=== PATIENT | male | born 1985 | race Caucasian/White ===

== ENCOUNTER 2016-06-13 02:00 | Emergency (ER) | payer MEDICARE, MEDICAID ==
[~2016-06-13] VITALS: Ht 172.7 cm; Wt 63.6 kg
[~2016-06-13 02:00] MED LIST: ATIVAN0.5 MG PO; BACTRIM DS1 TAB PO; DEPAKOTE250 MG PO; DOXYCYCL HYC100 MG PO; FLEXERIL PO; GEODON20 M1; LORTAB 5-325 MG1 TAB PO; MOTRIN800 MG PO; NAPROSYN500 MG PO; PHENERGAN25 MG/TAB PO; RISPERDAL2 MG PO; RISPERDAL3 MG OR; ROBITUSSIN AC10 ML PO; SEROQUEL100 MG PO; TORADOL PO; ULTRAM50 M1 OR; ULTRAM50 M1 PO; ULTRAM50 MG PO
[2016-06-13] MEDS ORDERED: SEROQUEL XR150 MG PO (02:16)
[2016-06-13] MEDS ORDERED: LORAZEPAM0.5 MG PO (02:17)
[2016-06-13] MEDS ORDERED: ULTRAM50 M1 PO (06:23)
[2016-06-13 07:00] VITALS: BP 128/72
== END 2016-06-13 07:05 | disposition home or self-care (01) ==
LOC: ED 02:00
DX: R51 Headache (principal); F20.9 Schizophrenia, unspecified

== ENCOUNTER 2017-01-14 20:43 | Emergency (ER) | payer MEDICARE, MEDICAID ==
[~2017-01-14] VITALS: Ht 172.7 cm; Wt 65.8 kg
[~2017-01-14 20:43] MED LIST changes: +LORAZEPAM0.5 MG PO; +SEROQUEL XR150 MG PO
[2017-01-14] MEDS ORDERED: CLONAZEPAM XX (21:01)
[2017-01-14 22:36] LABS: URINE BILIRUBIN - DIPSTICK NEGATIVE (NEGATIVE); URINE BLOOD DIPSTICK NEGATIVE (NEGATIVE); URINE CLARITY CLEAR; URINE COLOR YELLOW; URINE GLUCOSE - DIPSTICK NEGATIVE (NEGATIVE); URINE KETONE NEGATIVE (NEGATIVE); URINE LEUK ESTERASE NEGATIVE (NEGATIVE); URINE NITRITE - DIPSTICK NEGATIVE (Negative); URINE PROTEIN - DIPSTICK NEGATIVE (NEG-TRACE); URINE SPECIFIC GRAVITY 1.025; URINE UROBILINOGEN - DIPSTICK 0.2 E.U./dL (0.2)
[2017-01-14] MEDS ORDERED: NAPROSYN500 MG PO (22:49)
[2017-01-14 23:19] VITALS: BP 118/64
== END 2017-01-14 23:20 | disposition home or self-care (01) ==
LOC: ED 20:43
PROVIDERS: Emergency Medicine
DX: F41.9 Anxiety disorder, unspecified (principal); M79.1 Myalgia; F20.9 Schizophrenia, unspecified; F31.9 Bipolar disorder, unspecified; F17.210 Nicotine dependence, cigarettes, uncomplicated

== ENCOUNTER 2017-01-25 05:23 | Emergency (ER) | payer MEDICARE, MEDICAID ==
[~2017-01-25] VITALS: Ht 172.7 cm; Wt 64.8 kg
[~2017-01-25 05:23] MED LIST changes: +CLONAZEPAM XX
[2017-01-25 07:09] VITALS: BP 116/81
== END 2017-01-25 07:17 | disposition home or self-care (01) ==
LOC: ED 05:23
DX: S51.832A Puncture wound without foreign body of left forearm, initial encounter (principal); F25.9 Schizoaffective disorder, unspecified; F31.9 Bipolar disorder, unspecified; F17.210 Nicotine dependence, cigarettes, uncomplicated; W22.8XXA Striking against or struck by other objects, initial encounter; Y93.89 Activity, other specified; Y92.009 Unspecified place in unspecified non-institutional (private) residence as the place of occurrence of the external cause

== ENCOUNTER 2017-11-28 11:08 | Emergency (ER) | payer MEDICARE, MEDICAID ==
[~2017-11-28] VITALS: Ht 172.7 cm; Wt 81.8 kg
[2017-11-28] MEDS ORDERED: AUGMENTIN875TAB PO (11:47)
[2017-11-28] MEDS ORDERED: ZPAK PO (11:47)
[2017-11-28 12:07] LABS: INFLUENZA A NONE DETECTED (NONE DETECT); INFLUENZA B NONE DETECTED (NONE DETECT)
[2017-11-28 12:17] VITALS: BP 112/88
== END 2017-11-28 12:17 | disposition home or self-care (01) ==
LOC: ED 11:08
PROVIDERS: Family Medicine
DX: J20.9 Acute bronchitis, unspecified (principal); F17.210 Nicotine dependence, cigarettes, uncomplicated

== ENCOUNTER 2018-04-27 22:26 | Emergency (ER) | payer MEDICARE ==
[~2018-04-27] VITALS: Ht 172.7 cm; Wt 68.6 kg
[~2018-04-27 22:26] MED LIST changes: +AUGMENTIN875TAB PO; +ZPAK PO
[2018-04-27] MEDS ORDERED: WELLBUTRIN SR150 MG PO (22:57)
[2018-04-28] MEDS ORDERED: CEPHALEXIN500 M1 PO (00:15)
[2018-04-28 00:25] VITALS: BP 111/75
== END 2018-04-28 00:25 | disposition home or self-care (01) ==
LOC: ED 22:26
DX: J06.9 Acute upper respiratory infection, unspecified (principal); I10 Essential (primary) hypertension; F31.9 Bipolar disorder, unspecified; F20.9 Schizophrenia, unspecified; F17.210 Nicotine dependence, cigarettes, uncomplicated

== ENCOUNTER 2019-08-26 01:38 | Emergency (ER) | payer MEDICARE, MEDICAID ==
[~2019-08-26 01:38] MED LIST changes: +CEPHALEXIN500 M1 PO; +WELLBUTRIN SR150 MG PO
[2019-08-26] MEDS ORDERED: QUETIAPINE FUM150 MG (01:59)
[2019-08-26 02:14] LABS: HEMATOCRIT 42.9 % (39.0-50.0); HEMOGLOBIN 14.6 g/dl (14.0-18.0); IMMATURE GRANULOCYTES 0.1 % (0.0-5.0); MEAN CELL VOLUME 88.5 fL CALC (80.0-100.0); MEAN CORPUSCULAR HGB 30.1 pG CALC (26.0-32.0); NEUT# 3.74 thou/uL (1.82-7.42); RED BLOOD COUNT 4.85 mill/uL (4.70-6.10); RED CELL DISTRI WIDTH 12.2 % (11.5-15.5)
[2019-08-26 02:36] LABS: ALBUMIN 4.8 g/dL (3.2-5.0); ALKALINE PHOSPHATASE 55 u/l (38-126); ANION GAP 15 (6-22 (CALC)); BILIRUBIN, TOTAL 0.4 mg/dL (0.0-1.4); BUN 11 mg/dL (9-20); BUN/CREATININE RATIO 13 (12-20 (CALC)); CARBON DIOXIDE 23 mmol/l (22-30); CHLORIDE 104 mmol/l (95-108); CREATININE 0.9 mg/dL (0.7-1.3); GFR > 60 ML/MIN (>=60 (CALC)); GFR FOR AFR.AMER. > 60 ML/MIN (>=60 (CALC)); POTASSIUM 4.3 mmol/l (3.5-5.1); SGOT/AST 28 u/l (17-59); SODIUM 137 mmol/l (137-146)
[2019-08-26 02:59] LABS: URINE BILIRUBIN - DIPSTICK NEGATIVE (NEGATIVE); URINE BLOOD DIPSTICK NEGATIVE (NEGATIVE); URINE COLOR YELLOW; URINE GLUCOSE - DIPSTICK NEGATIVE (NEGATIVE); URINE KETONE NEGATIVE (NEGATIVE); URINE LEUK ESTERASE NEGATIVE (NEGATIVE); URINE NITRITE - DIPSTICK NEGATIVE (Negative); URINE PH 5.5 (4.5-8.0); URINE PROTEIN - DIPSTICK NEGATIVE (NEG-TRACE); URINE UROBILINOGEN - DIPSTICK 0.2 E.U./dL (0.2)
[2019-08-26] MEDS ORDERED: FLEXERIL PO (03:48)
[2019-08-26] MEDS ORDERED: ULTRAM50 M1 PO (03:48)
[2019-08-26 04:05] VITALS: BP 109/71
== END 2019-08-26 04:05 | disposition home or self-care (01) ==
LOC: ED 01:38
PROVIDERS: Emergency Medicine
DX: R52 Pain, unspecified (principal); I10 Essential (primary) hypertension; F31.9 Bipolar disorder, unspecified; F20.9 Schizophrenia, unspecified; F17.210 Nicotine dependence, cigarettes, uncomplicated

== ENCOUNTER 2019-09-12 19:25 | Emergency (ER) | payer MEDICARE, MEDICAID ==
[~2019-09-12] VITALS: Ht 175.3 cm; Wt 68.2 kg
[~2019-09-12 19:25] MED LIST changes: +QUETIAPINE FUM150 MG
[2019-09-12 20:20] LABS: HEMATOCRIT 40.2 % (39.0-50.0); HEMOGLOBIN 14.1 g/dl (14.0-18.0); IMMATURE GRANULOCYTES 0.2 % (0.0-5.0); MEAN CELL VOLUME 87.8 fL CALC (80.0-100.0); MEAN CORPUSCULAR HGB 30.8 pG CALC (26.0-32.0); MEAN CORPUSCULAR HGB CONC 35.1 g/dL CAL (32.0-36.0); NEUT# 6.16 thou/uL (1.82-7.42); RED BLOOD COUNT 4.58 mill/uL (4.70-6.10); RED CELL DISTRI WIDTH 12.5 % (11.5-15.5)
[2019-09-12 20:40] LABS: ALBUMIN 4.7 g/dL (3.2-5.0); ALKALINE PHOSPHATASE 58 u/l (38-126); ANION GAP 11 (6-22 (CALC)); BUN 10 mg/dL (9-20); BUN/CREATININE RATIO 13 (12-20 (CALC)); CARBON DIOXIDE 24 mmol/l (22-30); CHLORIDE 103 mmol/l (95-108); CREATININE 0.8 mg/dL (0.7-1.3); ETHYL ALCOHOL 0 mg/dl (0-30); GFR > 60 ML/MIN (>=60 (CALC)); GFR FOR AFR.AMER. > 60 ML/MIN (>=60 (CALC)); POTASSIUM 3.9 mmol/l (3.5-5.1); SGOT/AST 43 u/l (17-59); SODIUM 135 mmol/l (137-146); TOTAL PROTEIN 7.9 g/dL (6.3-8.2)
[2019-09-12 20:40] LABS: URINE BILIRUBIN - DIPSTICK NEGATIVE (NEGATIVE); URINE BLOOD DIPSTICK NEGATIVE (NEGATIVE); URINE CLARITY CLEAR; URINE COLOR YELLOW; URINE GLUCOSE - DIPSTICK NEGATIVE (NEGATIVE); URINE KETONE NEGATIVE (NEGATIVE); URINE LEUK ESTERASE NEGATIVE (Negative); URINE NITRITE - DIPSTICK NEGATIVE (Negative); URINE PROTEIN - DIPSTICK NEGATIVE (NEG-TRACE); URINE SPECIFIC GRAVITY 1.015; URINE UROBILINOGEN - DIPSTICK 0.2 E.U./dL (0.2)
[2019-09-12 20:42] LABS: BILIRUBIN, TOTAL 0.8 mg/dL (0.0-1.4)
[2019-09-12 21:27] VITALS: BP 128/78
== END 2019-09-12 21:35 | disposition designated cancer center or children's hospital (05) ==
LOC: ED 19:25
DX: F30.2 Manic episode, severe with psychotic symptoms (principal); I10 Essential (primary) hypertension; F17.200 Nicotine dependence, unspecified, uncomplicated; S80.861A Insect bite (nonvenomous), right lower leg, initial encounter; W57.XXXA Bitten or stung by nonvenomous insect and other nonvenomous arthropods, initial encounter; S60.812A Abrasion of left wrist, initial encounter; X58.XXXA Exposure to other specified factors, initial encounter; Z20.828 Contact with and (suspected) exposure to other viral communicable diseases

== ENCOUNTER 2020-01-27 23:24 | Emergency (ER) | payer MEDICARE, MEDICAID ==
[~2020-01-27] VITALS: Ht 172.7 cm; Wt 67.2 kg
[~2020-01-27 23:24] MED LIST changes: -QUETIAPINE FUM150 MG; +QUETIAPINE FUM150 MG PO
[2020-01-27] MEDS ORDERED: DOXYCYCL HYC100 MG PO (23:51)
[2020-01-28 00:05] VITALS: BP 113/62
[2020-01-29] MEDS ORDERED: DOXYCYCL HYC100 MG PO (15:43)
== END 2020-01-28 00:16 | disposition home or self-care (01) ==
LOC: ED 23:24
DX: L03.115 Cellulitis of right lower limb (principal); T63.301A Toxic effect of unspecified spider venom, accidental (unintentional), initial encounter; I10 Essential (primary) hypertension; F31.9 Bipolar disorder, unspecified; F17.200 Nicotine dependence, unspecified, uncomplicated

== ENCOUNTER 2020-01-29 23:42 | Emergency (ER) | payer MEDICARE, MEDICAID ==
[~2020-01-29] VITALS: Ht 172.7 cm; Wt 68.0 kg
[2020-01-30] MEDS ORDERED: NAPROXEN500 MG PO (00:16)
[2020-01-30] MEDS ORDERED: ULTRAM50 M1 PO (00:17)
[2020-01-30 00:55] VITALS: BP 107/60
== END 2020-01-30 00:56 | disposition home or self-care (01) ==
LOC: ED 23:42
DX: L03.115 Cellulitis of right lower limb (principal); T63.301A Toxic effect of unspecified spider venom, accidental (unintentional), initial encounter; I10 Essential (primary) hypertension; F31.9 Bipolar disorder, unspecified; F17.210 Nicotine dependence, cigarettes, uncomplicated

== ENCOUNTER 2020-05-17 14:55 | Emergency (ER) | payer MEDICARE, MEDICAID ==
[~2020-05-17] VITALS: Ht 172.7 cm; Wt 80.0 kg
[~2020-05-17 14:55] MED LIST changes: +NAPROXEN500 MG PO
[2020-05-17 16:52] VITALS: BP 133/87
== END 2020-05-17 16:52 | disposition home or self-care (01) ==
LOC: ED 14:55
DX: M25.551 Pain in right hip (principal); M25.562 Pain in left knee; I10 Essential (primary) hypertension; F31.9 Bipolar disorder, unspecified; F17.200 Nicotine dependence, unspecified, uncomplicated; Z20.822 Contact with and (suspected) exposure to COVID-19

== ENCOUNTER 2020-06-15 01:05 | Emergency (ER) | payer MEDICARE, MEDICAID ==
[~2020-06-15] VITALS: Ht 172.7 cm; Wt 67.7 kg
[2020-06-15] MEDS ORDERED: VOLTAREN - GENE75 MG PO (01:33)
[2020-06-15 06:52] VITALS: BP 131/71
== END 2020-06-15 06:40 | disposition home or self-care (01) ==
LOC: ED 01:05
DX: M70.71 Other bursitis of hip, right hip (principal); I10 Essential (primary) hypertension; F31.9 Bipolar disorder, unspecified; F17.200 Nicotine dependence, unspecified, uncomplicated

== ENCOUNTER 2020-12-16 13:03 | Emergency (ER) | payer MEDICARE, MEDICAID ==
[~2020-12-16] VITALS: Ht 172.7 cm; Wt 68.0 kg
[~2020-12-16 13:03] MED LIST changes: +VOLTAREN - GENE75 MG PO
[2020-12-16 13:35] LABS: HEMATOCRIT 41.2 % (39.0-50.0); IMMATURE GRANULOCYTES 0.1 % (0.0-5.0); MEAN CORPUSCULAR HGB 30.6 pG CALC (26.0-32.0); NEUT# 4.16 thou/uL (1.82-7.42); RED BLOOD COUNT 4.58 mill/uL (4.70-6.10)
[2020-12-16 13:52] LABS: ALBUMIN 4.7 g/dL (3.2-5.0); ALKALINE PHOSPHATASE 56 u/l (38-126); ANION GAP 12 (6-22 (CALC)); BILIRUBIN, TOTAL 0.6 mg/dL (0.0-1.4); BUN 14 mg/dL (9-20); BUN/CREATININE RATIO 18 (12-20 (CALC)); CARBON DIOXIDE 23 mmol/l (22-30); CHLORIDE 107 mmol/l (95-108); CREATININE 0.8 mg/dL (0.7-1.3); ETHYL ALCOHOL 101 mg/dl (0-30); GFR > 60 ML/MIN (>=60 (CALC)); GFR FOR AFR.AMER. > 60 ML/MIN (>=60 (CALC)); POTASSIUM 4.3 mmol/l (3.5-5.1); SGOT/AST 28 u/l (17-59); SODIUM 138 mmol/l (137-146); TOTAL PROTEIN 7.7 g/dL (6.3-8.2)
[2020-12-16 14:46] LABS: URINE BILIRUBIN - DIPSTICK NEGATIVE (NEGATIVE); URINE BLOOD DIPSTICK NEGATIVE (NEGATIVE); URINE COLOR YELLOW; URINE GLUCOSE - DIPSTICK NEGATIVE (NEGATIVE); URINE KETONE NEGATIVE (NEGATIVE); URINE LEUK ESTERASE NEGATIVE (NEGATIVE); URINE PH 5.5 (4.5-8.0); URINE PROTEIN - DIPSTICK NEGATIVE (NEG-TRACE); URINE SPECIFIC GRAVITY >=1.030; URINE UROBILINOGEN - DIPSTICK 0.2 E.U./dL (0.2)
[2020-12-16 14:50] LABS: URINE NITRITE - DIPSTICK NEGATIVE (Negative)
[2020-12-16 16:40] VITALS: BP 118/71
== END 2020-12-16 16:54 | disposition home or self-care (01) ==
LOC: ED 13:03
DX: R51.9 Headache, unspecified (principal); M25.562 Pain in left knee; F10.129 Alcohol abuse with intoxication, unspecified; I10 Essential (primary) hypertension; F20.9 Schizophrenia, unspecified; F31.9 Bipolar disorder, unspecified; F60.9 Personality disorder, unspecified; F17.210 Nicotine dependence, cigarettes, uncomplicated

== ENCOUNTER 2021-04-26 20:41 | Emergency (ER) | payer MEDICARE, MEDICAID ==
[~2021-04-26] VITALS: Ht 172.7 cm; Wt 68.0 kg
[2021-04-26 21:33] LABS: HEMATOCRIT 40.9 % (39.0-50.0); HEMOGLOBIN 13.9 g/dl (14.0-18.0); IMMATURE GRANULOCYTES 0.2 % (0.0-5.0); MEAN CELL VOLUME 90.3 fL CALC (80.0-100.0); MEAN CORPUSCULAR HGB 30.7 pG CALC (26.0-32.0); NEUT# 2.84 thou/uL (1.82-7.42); RED BLOOD COUNT 4.53 mill/uL (4.70-6.10); RED CELL DISTRI WIDTH 11.8 % (11.5-15.5)
[2021-04-26 21:45] LABS: ALBUMIN 4.5 g/dL (3.2-5.0); ALKALINE PHOSPHATASE 38 u/l (38-126); ANION GAP 13 (6-22 (CALC)); BILIRUBIN, TOTAL 0.7 mg/dL (0.0-1.4); BUN 9 mg/dL (9-20); BUN/CREATININE RATIO 13 (12-20 (CALC)); CARBON DIOXIDE 27 mmol/l (22-30); CHLORIDE 102 mmol/l (95-108); CREATININE 0.7 mg/dL (0.7-1.3); ETHYL ALCOHOL 33 mg/dl (0-30); GFR > 60 ML/MIN (>=60 (CALC)); GFR FOR AFR.AMER. > 60 ML/MIN (>=60 (CALC)); POTASSIUM 4.2 mmol/l (3.5-5.1); SGOT/AST 30 u/l (17-59); SODIUM 138 mmol/l (137-146); TOTAL PROTEIN 7.6 g/dL (6.3-8.2)
[2021-04-26 21:56] LABS: MYOGLOBIN 53 ng/mL (0 - 121)
[2021-04-27 08:10] VITALS: BP 108/71
== END 2021-04-27 08:10 | disposition home or self-care (01) ==
LOC: ED 20:41
PROVIDERS: Emergency Medicine
DX: F10.180 Alcohol abuse with alcohol-induced anxiety disorder (principal); F20.9 Schizophrenia, unspecified; I10 Essential (primary) hypertension; F31.9 Bipolar disorder, unspecified; F17.210 Nicotine dependence, cigarettes, uncomplicated

== ENCOUNTER 2021-07-25 21:01 | Emergency (ER) | payer MEDICARE, MEDICAID ==
[~2021-07-25] VITALS: Ht 172.7 cm; Wt 70.0 kg
[2021-07-25] VITALS (11 sets, daily range): BP systolic 116–149; BP diastolic 68–91
[2021-07-25 21:16] LABS: HEMATOCRIT 41.6 % (39.0-50.0); HEMOGLOBIN 13.9 g/dl (14.0-18.0); IMMATURE GRANULOCYTES 0.1 % (0.0-5.0); MEAN CELL VOLUME 90.2 fL CALC (80.0-100.0); MEAN CORPUSCULAR HGB 30.2 pG CALC (26.0-32.0); MEAN CORPUSCULAR HGB CONC 33.4 g/dL CAL (32.0-36.0); NEUT# 5.89 thou/uL (1.82-7.42); RED BLOOD COUNT 4.61 mill/uL (4.70-6.10); RED CELL DISTRI WIDTH 12.7 % (11.5-15.5)
[2021-07-25 21:45] LABS: ANION GAP 15 (6-22 (CALC)); BILIRUBIN, TOTAL 0.5 mg/dL (0.0-1.4); BUN 13 mg/dL (9-20); BUN/CREATININE RATIO 17 (12-20 (CALC)); CARBON DIOXIDE 22 mmol/l (22-30); CHLORIDE 106 mmol/l (95-108); CREATININE 0.8 mg/dL (0.7-1.3); ETHYL ALCOHOL 99 mg/dl (0-30); GFR > 60 ML/MIN (>=60 (CALC)); GFR FOR AFR.AMER. > 60 ML/MIN (>=60 (CALC)); MAGNESIUM 1.8 mg/dL (1.6-2.3); POTASSIUM 4.5 mmol/l (3.5-5.1); SGOT/AST 35 u/l (17-59); SODIUM 138 mmol/l (137-146); TOTAL PROTEIN 7.8 g/dL (6.3-8.2)
[2021-07-25 21:46] LABS: ALKALINE PHOSPHATASE 59 u/l (38-126)
[2021-07-26] VITALS (20 sets, daily range): BP systolic 96–148; BP diastolic 50–126
[2021-07-26 01:42] LABS: URINE BILIRUBIN - DIPSTICK NEGATIVE (NEGATIVE); URINE BLOOD DIPSTICK NEGATIVE (NEGATIVE); URINE COLOR YELLOW; URINE GLUCOSE - DIPSTICK NEGATIVE (NEGATIVE); URINE KETONE NEGATIVE (NEGATIVE); URINE LEUK ESTERASE NEGATIVE (NEGATIVE); URINE NITRITE - DIPSTICK NEGATIVE (Negative); URINE PROTEIN - DIPSTICK NEGATIVE (NEG-TRACE); URINE SPECIFIC GRAVITY 1.015; URINE UROBILINOGEN - DIPSTICK 0.2 E.U./dL (0.2)
[2021-07-27 15:41] VITALS: BP 143/91
== END 2021-07-27 15:42 ==
LOC: ED 21:01
PROVIDERS: Family Medicine
DX: R45.851 Suicidal ideations (principal); F10.129 Alcohol abuse with intoxication, unspecified; F15.10 Other stimulant abuse, uncomplicated; I10 Essential (primary) hypertension; F31.9 Bipolar disorder, unspecified; F20.9 Schizophrenia, unspecified; F60.9 Personality disorder, unspecified; F17.200 Nicotine dependence, unspecified, uncomplicated; M25.562 Pain in left knee
CPT/HCPCS: S0166

== ENCOUNTER 2021-08-03 18:33 | Emergency (ER) | payer MEDICARE, MEDICAID ==
[~2021-08-03] VITALS: Ht 172.7 cm; Wt 67.8 kg
[2021-08-03 20:17] VITALS: BP 116/82
== END 2021-08-03 20:25 | disposition home or self-care (01) ==
LOC: ED 18:33
DX: R20.8 Other disturbances of skin sensation (principal); F31.9 Bipolar disorder, unspecified; F20.9 Schizophrenia, unspecified; I10 Essential (primary) hypertension; F17.200 Nicotine dependence, unspecified, uncomplicated

== ENCOUNTER 2022-02-02 09:07 | Emergency (ER) | payer MEDICARE, MEDICAID ==
[~2022-02-02] VITALS: Ht 172.7 cm; Wt 68.0 kg
[2022-02-02 09:27] VITALS: BP 110/78
[2022-02-02 09:30] VITALS: BP 108/78
[2022-02-02 10:00] VITALS: BP 110/79
[2022-02-02 10:30] VITALS: BP 131/61
[2022-02-02] MEDS ORDERED: CEPHALEXIN500 M1 PO (12:29)
[2022-02-02 12:40] VITALS: BP 131/61
== END 2022-02-02 12:56 | disposition home or self-care (01) ==
LOC: ED 09:07
DX: S06.0X0A Concussion without loss of consciousness, initial encounter (principal); S20.312A Abrasion of left front wall of thorax, initial encounter; S00.93XA Contusion of unspecified part of head, initial encounter; M79.671 Pain in right foot; F17.210 Nicotine dependence, cigarettes, uncomplicated; I10 Essential (primary) hypertension; F31.9 Bipolar disorder, unspecified; W14.XXXA Fall from tree, initial encounter

== ENCOUNTER 2022-08-12 11:06 | Emergency (ER) | payer MEDICARE, MEDICAID ==
[~2022-08-12] VITALS: Ht 172.7 cm; Wt 67.6 kg
[2022-08-12 11:11] VITALS: BP 112/79
[2022-08-12 11:15] VITALS: BP 113/85
[2022-08-12 11:30] VITALS: BP 108/80
[2022-08-12 11:45] VITALS: BP 108/77
[2022-08-12 12:00] VITALS: BP 116/79
[2022-08-12] MEDS ORDERED: NAPROXEN500 MG PO (12:39)
[2022-08-12] MEDS ORDERED: METHOCARBAMOL500 MG PO (12:39)
[2022-08-12 12:50] VITALS: BP 108/77
== END 2022-08-12 12:59 | disposition home or self-care (01) ==
LOC: ED 11:06
DX: S16.1XXA Strain of muscle, fascia and tendon at neck level, initial encounter (principal); M54.6 Pain in thoracic spine; I10 Essential (primary) hypertension; F31.9 Bipolar disorder, unspecified; F17.210 Nicotine dependence, cigarettes, uncomplicated; V18.0XXA Pedal cycle driver injured in noncollision transport accident in nontraffic accident, initial encounter; Y93.55 Activity, bike riding; Z20.822 Contact with and (suspected) exposure to COVID-19

== ENCOUNTER 2022-09-03 00:24 | Emergency (ER) | payer MEDICARE, MEDICAID ==
[~2022-09-03] VITALS: Ht 172.7 cm; Wt 76.0 kg
[~2022-09-03 00:24] MED LIST changes: +METHOCARBAMOL500 MG PO
[2022-09-03 00:34] VITALS: BP 110/80
[2022-09-03 00:45] VITALS: BP 110/73
[2022-09-03 01:00] VITALS: BP 100/67
[2022-09-03 01:15] VITALS: BP 104/73
[2022-09-03 01:31] VITALS: BP 112/65
[2022-09-03 01:42] VITALS: BP 112/65
== END 2022-09-03 01:42 | disposition left against medical advice (07) ==
LOC: ED 00:24 → LWOBS 01:25 → ED 01:25
DX: Z53.21 Procedure and treatment not carried out due to patient leaving prior to being seen by health care provider (principal)

== ENCOUNTER 2022-10-28 17:39 | Emergency (ER) | payer MEDICARE, MEDICAID ==
[~2022-10-28] VITALS: Ht 172.7 cm; Wt 68.0 kg
[2022-10-28 18:06] VITALS: BP 109/78
== END 2022-10-28 18:55 | disposition left against medical advice (07) ==
LOC: ED 17:39
DX: R22.1 Localized swelling, mass and lump, neck (principal); I10 Essential (primary) hypertension; F31.9 Bipolar disorder, unspecified; F17.200 Nicotine dependence, unspecified, uncomplicated; Z85.828 Personal history of other malignant neoplasm of skin

== ENCOUNTER 2023-03-13 12:32 | Emergency (ER) | payer MEDICARE, MEDICAID ==
[~2023-03-13] VITALS: Ht 172.7 cm; Wt 70.0 kg
[~2023-03-13 12:32] MED LIST changes: +OMNI-PAC300 MG PO
[2023-03-13 13:01] VITALS: BP 105/77
[2023-03-13] MEDS ORDERED: BACTRIM DS1 TAB PO (13:09)
[2023-03-13] MEDS ORDERED: CEPHALEXIN500 M1 PO (13:09)
[2023-03-13 13:15] VITALS: BP 108/71
[2023-03-13] MEDS ORDERED: IBUPROFEN600 MG PO (13:23)
[2023-03-13 13:27] VITALS: BP 108/71
== END 2023-03-13 13:27 | disposition home or self-care (01) ==
LOC: ED 12:32
DX: L02.415 Cutaneous abscess of right lower limb (principal); L03.115 Cellulitis of right lower limb; I10 Essential (primary) hypertension; F17.200 Nicotine dependence, unspecified, uncomplicated

== ENCOUNTER 2023-03-30 22:44 | Emergency (ER) | payer MEDICARE, MEDICAID ==
[~2023-03-30] VITALS: Ht 172.7 cm; Wt 60.0 kg
[~2023-03-30 22:44] MED LIST changes: +IBUPROFEN600 MG PO
[2023-03-30 23:23] VITALS: BP 118/86
[2023-03-30 23:30] VITALS: BP 112/80
[2023-03-30 23:45] VITALS: BP 116/86
[2023-03-30] MEDS ORDERED: QUETIAPINE FUM150 MG (23:47)
[2023-03-31] VITALS: BP 115/80
[2023-03-31 00:19] LABS: BASO% 0.4 % (0-3); HEMATOCRIT 38.5 % (39.0-50.0); HEMOGLOBIN 12.9 g/dl (14.0-18.0); IMMATURE GRANULOCYTES 0.1 % (0.0-5.0); LYMPH% 29.5 % (15-41); MEAN CELL VOLUME 91.2 fL CALC (80.0-100.0); MEAN CORPUSCULAR HGB 30.6 pG CALC (26.0-32.0); MEAN CORPUSCULAR HGB CONC 33.5 g/dL CAL (32.0-36.0); MONO% 7.8 % (2-13); NEUT# 4.25 thou/uL (1.82-7.42); NEUT% 55.2 % (42-76); RED BLOOD COUNT 4.22 mill/uL (4.70-6.10); RED CELL DISTRI WIDTH 12.3 % (11.5-15.5)
[2023-03-31 00:33] LABS: ALBUMIN 4.1 g/dL (3.2-5.0); ALKALINE PHOSPHATASE 66 u/l (38-126); BILIRUBIN, TOTAL 0.3 mg/dL (0.2-1.3); BUN 17 mg/dL (9-20); BUN/CREATININE RATIO 17 (12-20 (CALC)); CHLORIDE 106 mmol/l (95-108); GFR FOR AFR.AMER. > 60 ML/MIN (>=60 (CALC)); GFR OTHER RACES > 60 ML/MIN (>=60 (CALC)); POTASSIUM 4.3 mmol/l (3.5-5.1); SGOT/AST 27 u/l (17-59); SODIUM 139 mmol/l (137-146); TOTAL PROTEIN 6.7 g/dL (6.3-8.2)
[2023-03-31 00:37] LABS: ANION GAP 10 (6-22 (CALC)); CARBON DIOXIDE 27 mmol/l (22-30)
[2023-03-31 00:45] VITALS: BP 112/77
[2023-03-31 01:00] VITALS: BP 108/78
[2023-03-31 01:16] VITALS: BP 130/83
[2023-03-31 01:20] VITALS: BP 130/83
== END 2023-03-31 02:12 | disposition home or self-care (01) ==
LOC: ED 22:44
PROVIDERS: Family Medicine
DX: L02.413 Cutaneous abscess of right upper limb (principal); L02.415 Cutaneous abscess of right lower limb; I10 Essential (primary) hypertension; F31.9 Bipolar disorder, unspecified; F17.200 Nicotine dependence, unspecified, uncomplicated

== ENCOUNTER 2024-05-19 18:16 | Emergency (ER) | payer MEDICARE, MEDICAID ==
[~2024-05-19] VITALS: Ht 172.7 cm; Wt 70.3 kg
[~2024-05-19 18:16] MED LIST changes: +QUETIAPINE FUM150 MG
[2024-05-19] MEDS ORDERED: IPRATROPIUM-Albuterol 0.5MG-2.5MG/3 ML NEB ONE (20:00)
[2024-05-19] MEDS ORDERED: methylPREDNISolone SODIUM SUCC 125 MG/2 ML SDV IM ONE (20:00)
[2024-05-19 20:16] LABS: BASO% 0.8 % (0-3); EOS% 7.9 % (0-8); HEMATOCRIT 42.2 % (39.0-50.0); HEMOGLOBIN 14.4 g/dl (14.0-18.0); IMMATURE GRANULOCYTES 0.2 % (0.0-5.0); LYMPH% 41.8 % (15-41); MEAN CELL VOLUME 90.9 fL CALC (80.0-100.0); MEAN CORPUSCULAR HGB CONC 34.1 g/dL CAL (32.0-36.0); NEUT# 2.08 thou/uL (1.82-7.42); NEUT% 39.3 % (42-76); RED BLOOD COUNT 4.64 mill/uL (4.70-6.10); RED CELL DISTRI WIDTH 12.5 % (11.5-15.5)
[2024-05-19 20:27] LABS: CREATININE 0.8 mg/dL (0.7-1.3); POTASSIUM 4.6 mmol/l (3.5-5.1)
[2024-05-19] MEDS ORDERED: BENZONATATE200 MG PO (20:32)
[2024-05-19] MEDS ORDERED: PREDNISONE50 MG PO (20:32)
[2024-05-19] MEDS ORDERED: VENTOLIN HFA IN (20:32)
[2024-05-19] MEDS ORDERED: ALBUTEROL SULFATE 8 GM INH IN ONE (20:35)
[2024-05-19] MEDS ORDERED: predniSONE 20 MG/TAB PO ONE (20:35)
[2024-05-19 20:50] VITALS: BP 122/80
== END 2024-05-19 20:50 | disposition home or self-care (01) ==
LOC: ED 18:16
PROVIDERS: Family Medicine
DX: B34.9 Viral infection, unspecified (principal); J98.01 Acute bronchospasm; I10 Essential (primary) hypertension; F31.9 Bipolar disorder, unspecified; F60.9 Personality disorder, unspecified; F20.9 Schizophrenia, unspecified; Z20.822 Contact with and (suspected) exposure to COVID-19